=== PATIENT | female | born 1960 | race Caucasian/White ===

== ENCOUNTER 2016-07-17 14:07 | Observation (INO) | payer SELFPAY ==
--- NOTE | ~2016-07-17 | DS ---
Discharge Summary [facility] [address] [place]. [address] NAME: TERESA GODOY : 62 STATUS : DIS Caleb PAT#: [id number] AGE: 56 ADM/REG DATE : 07/17/16 MR#: [id number] REPORT SERV DATE: 07/20/16 DICTATED BY: JR. GAMBOA WILLIAM JOHN DATE: 07/19/16 REPORT STATUS : Draft TRANSCRIBED BY: NERY DATE: 07/19/16 ADMISSION DATE: 07/17/2016 DISCHARGE DATE: 07/19/2016 DISCHARGE DIAGNOSES: Include: 1. Bilateral multilobar pneumonia. 2. Chronic obstructive pulmonary disease exacerbation with continued tobacco use. 3. Chronic iron-deficiency anemia. 4. Bilateral lung nodules. 5. Hypokalemia. 6. Drug use with urine drug screen positive for amphetamine and marijuana. 7. Depressed thyroid-stimulating hormone with normal free T4. OPERATIONS/PROCEDURES AND TREATMENTS: Include: 1. Chest x-ray done 07/17/2016, which showed bibasilar asymmetric infiltrates, right worse than the left. 2. CT of the chest without contrast done 07/18/2016, which showed patchy ground-glass infiltrates throughout the lungs bilaterally involving the upper and lower lobes as well as the right middle lobe, likely infectious or inflammatory. There were peripheral subpleural calcified nodules in the lower lobes of both lungs, measuring up to 4 x 6 cm in the right lower lobe. Suggest CT follow up. There was prominent right peritracheal and subcarinal lymph nodes, likely reactive. Lung-RADS category 2 suggesting followup low-dose CT in 12 months. 3. Blood cultures x2, which were sterile to date. DISCHARGE MEDICATIONS: Include: 1. Prozac 40 mg orally daily. 2. Neurontin 800 mg three times a day. 3. Prednisone 40 mg orally daily for three days, then 20 for three days, then 10 for three days, then none. 4. Levaquin 750 mg orally daily for three days. 5. Dulera two puffs inhaled twice a day. 6. Combivent two puffs every six hours. HOSPITAL COURSE: The patient was a 56-year-old white female, presented to the emergency room at [facility] with complaint of shortness of breath. Apparently, she has had a six- month course of shortness of breath with dramatic worsening in the last week with shortness of breath even with minimal walking. She had a feeling of fluttering in her chest and cough, which is nonproductive. She denied fevers. She has smoked since she is 13 years old and has been cutting down and is currently at [id number] per day. On initial exam, she was afebrile with normal heart rate and respiratory rate, saturating 94% on room air. She had wheezing bilaterally with normal respiratory effort. Chest x-ray and CT scan are detailed above. The patient was admitted to the hospital with diagnosis of bilateral pneumonia and COPD exacerbation. She was placed on empiric Levaquin. Sputum culture was not obtained as the Discharge Summary [address] [place]. [address] NAME: TERESA GODOY : 62 STATUS : DIS Caleb PAT#: [id number] AGE: 56 ADM/REG DATE : 07/17/16 MR#: [id number] REPORT SERV DATE: 07/20/16 DICTATED BY: JR. GAMBOA WILLIAM JOHN DATE: 07/19/16 REPORT STATUS : Draft TRANSCRIBED BY: NERY DATE: 07/19/16 patient could not expectorate. She will complete a five-day course of Levaquin. She was initially on IV steroids, which were transitioned to oral. She has been started on bronchodilators and anticholinergic inhaled medication as well as inhaled steroid, which will be continued as an outpatient. Regarding the patient's chronic iron-deficiency anemia, she has microcytic anemia. Iron indices were indicative of iron deficiency. We would recommend outpatient colonoscopy. Regarding the bilateral lung nodules, we would recommend a low-dose CT scan in 12 months. The remainder of the patient's health problems were stable and were not addressed. DISCHARGE DIET: Regular. ACTIVITY: As tolerated. For discharge exam and laboratory, please see daily progress note. FOLLOWUP ISSUES: 1. Recommend followup CT in 12 months, low dose. 2. Consider outpatient colonoscopy for iron-deficiency anemia. 3. Follow up with [facility] in one to two weeks. This discharge took 34 minutes for patient encounter, coordination of care, and documentation. JUANA/NERY Roverto Gamboa Jr, MD / [id number] CC: Roverto Gamboa Jr, MD
--- NOTE | ~2016-07-17 | HP ---
History And Physical [facility] [address] [place]. [address] NAME: TERESA GODOY : 62 STATUS : ADM IN [facility]#: [id number] AGE: 56 ADM/REG DATE : 07/17/16 MR#: [id number] REPORT SERV DATE: 07/17/16 DICTATED BY: FILEMNO BUNN DATE: 07/17/16 REPORT STATUS : Draft TRANSCRIBED BY: MODPepe DATE: 07/17/16 DATE OF ADMISSION: 07/17/2016 HISTORY OF PRESENT ILLNESS: The patient is a 56-year-old female, who presented to [facility] Room with a complaint of shortness of breath. She reported that her shortness of breath is going on approximately for six months and she said that she was short of breath on physical exertion, but for the last week, the shortness of breath progressed substantially and she is even short of breath on minimal walking. She was having a feeling of fluttering in her chest, and she also had a cough, which is nonproductive, as well as she was complaining of some sharp pain behind the sternum just in the middle but it does not radiate to the left arm and it is not increasing on inspiration. She said that she is a long-term smoker, she smokes since 13 years old, used to smoke two to three packs a day, now she cut down to half pack a day. She said that she was trying to lose her weight and walking a lot and she lost significant amount of weight but recently, she is short of breath and cannot walk more, as well as she said that sometimes she has swollen lower extremities. She denied any orthopnea. No paroxysmal nocturnal dyspnea. She said she did not have any fever. If I asked her if she had a cold-like symptoms, she told me she had probably cold-like symptoms recently. PAST MEDICAL HISTORY: Known for hypertension, history of COPD. She denied any history of strokes. No heart attacks. No diabetes. She said that she is not using oxygen but probably she is supposed to use oxygen. She denied any history of seizures. No hypothyroidism. Also, she said that she has past medical history of bipolar disorder and depression. SOCIAL HISTORY: She used to be homeless. [facility], but now she has housing. She lives with her boyfriend. She denies any excessive use of alcohol. She smoked before two to three packs a day, now half pack a day for the last six months. She denies any use of recreational drugs. FAMILY HISTORY: Mother has diabetes. Father had heart problems. HOME MEDICATIONS: Fluoxetine 40 mg a day, Neurontin 800 three times a day, hydrocodone 10/325 twice a day p.r.n. for pain. ALLERGIES: NO KNOWN DRUG ALLERGIES. REVIEW OF SYSTEMS: Fourteen point review of system done and negative except what is stated in the history of present illness. PHYSICAL EXAMINATION: GENERAL: Well-nourished, well-developed female, not in acute distress. Resting quietly. VITAL SIGNS: Blood pressure 150/72, temperature 97.9, heart rate 88, respiratory rate 20, and oxygen saturation was 94 on room air. HEENT: Head is atraumatic, normocephalic. Conjunctivae clear. Pupils are equal and History And Physical [address] [address] NAME: TERESA GODOY : 62 STATUS : ADM IN [facility]#: [id number] AGE: 56 ADM/REG DATE : 07/17/16 MR#: [id number] REPORT SERV DATE: 07/17/16 DICTATED BY: FILEMON BUNN DATE: 07/17/16 REPORT STATUS : Draft TRANSCRIBED BY: NERY DATE: 07/17/16 reactive to light and accommodation. Extraocular muscles are intact. NECK: Supple. Trachea is midline. No supraclavicular or cervical lymphadenopathy. LUNGS: Positive wheezing anteriorly and posteriorly. Normal respiratory effort. CARDIOVASCULAR SYSTEM: Regular rate and rhythm. Point of maximal impulse not displaced. ABDOMEN: Soft, nontender, nondistended. Positive normoactive bowel sounds. EXTREMITIES: No clubbing, no cyanosis. Trace edema. NEUROLOGIC: Awake, alert, and oriented in time, place, and person. Muscle strength is 5/5 bilaterally on upper and lower extremities. PSYCHIATRIC: Normal mood and affect. LABORATORY RESULTS: Sodium 147, potassium 3.3, chloride 116, carbon dioxide 25, BUN 6, creatinine 0.61, blood sugar 107, ALT 42, AST 28. White count 9.3, hemoglobin 9.7, hematocrit 32.2, MCV 71.2, platelet count 292. There is hypochromasia, anisocytosis, microcytosis, and teardrop-shaped ovalocytes. Urinalysis was not done. Chest x-ray showed bibasilar asymmetric infiltrate, the right lung base worse than the left. EKG showed normal sinus rhythm with possible left atrial enlargement, right bundle branch block. Otherwise, negative EKG and ventricular rate of 91. ASSESSMENT AND PLAN: This is a 56-year-old female with a past medical history of chronic obstructive pulmonary disease who presented with dyspnea going on for the last six months with the cough being nonproductive, history of tobacco abuse, still smoking, presented with: 1. Bilateral pneumonia, although afebrile on presentation. 2. Chronic obstructive pulmonary disease exacerbation. 3. Tobacco abuse. 4. Anemia. Question if this is iron deficiency with a low MCV or maybe anemia of chronic disease. 5. For her pneumonia, basically these pneumonitis, bilateral pulmonary infiltrates. I will check her procalcitonin. They already victoria her blood cultures in the emergency room, and we will start her on IV Levaquin. Her oxygenation now in the emergency room looks good. 6. For chronic obstructive pulmonary disease exacerbation, I will start her on steroids. 7. Tobacco abuse. She needs to stop smoking. 8. Shortness of breath of six months duration likely related to chronic obstructive pulmonary disease. I will put her on intravenous Solu-Medrol as well as DuoNeb breathing treatment, but I will also order echocardiogram on this patient. 9. Chest pain, atypical, sharp in the midsternal area. We will check her serial troponins. 10.Anemia with low MCV. Could have iron deficiency anemia. We will check her stool Hemoccult x3, and we will check her TSH, and we will check also serum iron, ferritin, total iron-binding capacity. I will order CT of the chest without contrast for further delineation of pneumonia. I will order echocardiogram and also further review of medical records revealed that before the patient had urine drug screen done probably outpatient in 10/2015 and at that time, she was amphetamine positive. I am going to do urine drug screen again on this patient, and my partner, Dr. Draper, will see this patient starting tomorrow morning. History And Physical [address] [place]. [address] NAME: TERESA GODOY : 62 STATUS : ADM IN PAT#: [id number] AGE: 56 ADM/REG DATE : 07/17/16 MR#: [id number] REPORT SERV DATE: 07/17/16 DICTATED BY: FILEMON BUNN DATE: 07/17/16 REPORT STATUS : Draft TRANSCRIBED BY: NERY DATE: 07/17/16 MG/NERY Filemon Bunn M.D. / [id number]
[~2016-07-17 14:07] MED LIST: ACET500CAP PO; ALEVE220 MG PO; CELEXA40 MG PO; GOODY'S EX-STR1 EAC1 PO; PRIN10 PO; PROAIR HFA INH; ZANTAC150 MG PO
[2016-07-17 14:36] LABS: BASOPHILS 0.2 %; BASOPHILS ABSOLUTE 0.02 10/3/uL (0.0-0.16); EOSINOPHILS 2.6 %; EOSINOPHILS ABSOLUTE 0.24 10/3/uL (0.0-0.53); ER CBC TAT 0 Hrs 05 Mins; HEMATOCRIT 32.2 % (36.0-48.0); HEMOGLOBIN 9.7 g/dL (12.0-16.0); IMMATURE GRANULOCYTES 0.2 %; IMMATURE GRANULOCYTES ABSOLUTE 0.02 10/3/uL (0.0-0.11); LYMPHOCYTES 13.5 %; LYMPHOCYTES ABSOLUTE 1.25 10/3/uL (0.67-4.30); MEAN CORPUS HGB CONC 30.1 g/dL (32.0-36.0); MEAN CORPUSCULAR HEMOGLOB 21.5 pg (26.0-34.0); MEAN CORPUSCULAR VOLUME 71.2 fL (80-100); MEAN PLATELET VOLUME 9.1 fL (9.2-13.0); MONOCYTES 7.1 %; MONOCYTES ABSOLUTE 0.66 10/3/uL (0.21-1.20); NEUTROPHILS 76.4 %; NEUTROPHILS ABSOLUTE 7.07 10/3/uL (2.02-8.40); PLATELET COUNT 292 10/3/uL (150-400); RBC DISTRIBUTION WIDTH 17.3 % (12.0-16.0); RED CELL COUNT 4.52 10/6/uL (4.0-5.6); WHITE BLOOD CELLS 9.3 10/3/uL (4.5-10.5)
[2016-07-17 14:37] LABS: MANUAL DIFF NO %
[2016-07-17 14:52] LABS: CALCIUM, SERUM 8.6 MG/DL (8.5-10.4); CHLORIDE, SERUM 116 MMOL/L (96-112); CO2 (CARBON DIOXIDE) 25 MMOL/L (24-34); CREATININE 0.61 MG/DL (0.55-1.02); GFR AFRICAN AMERICAN 118 ML/MIN (>=60); GFR NON AFRICAN AMERICAN 102 ML/MIN (>=60); GLUCOSE, SERUM 107 MG/DL (60-99); POTASSIUM, SERUM 3.3 MMOL/L (3.5-5.3); SGOT(AST) 28 U/L (5-40); SGPT(ALT) 42 U/L (5-65); SODIUM, SERUM 147 MMOL/L (135-148); TOTAL BILIRUBIN 0.2 MG/DL (0-1.2); TOTAL PROTEIN 6.6 G/DL (6.0-8.5)
[2016-07-17 14:53] LABS: A/G RATIO 0.8 (0.7-1.9); ALBUMIN 2.9 G/DL (3.5-5.0); ALKALINE PHOSPHATASE 163 U/L (45-117); BUN (BLOOD UREA NITROGEN) 6 MG/DL (6-23); GLOBULIN 3.7 G/DL (2.5-4.1)
[2016-07-17 15:11] LABS: ANISOCYTOSIS 1+ (5-10/OIF) (0-5/OIF); HYPOCHROMIA 1+ (3-10/OIF) (0-2/OIF); PLATELET ESTIMATE ADQ (ADEQUATE)
[2016-07-17 15:12] LABS: OVALOCYTES 1+ (3-10/OIF) (0-2/OIF); SPHEROCYTES OCC (0-2/OIF); TEARDROP SHAPED RBCS OCC (0-2/OIF)
[2016-07-17] MEDS ORDERED: NORCO1 TAB PO (15:46)
[2016-07-17] MEDS ORDERED: NEUR800 PO (15:46)
[2016-07-17] MEDS ORDERED: PROZAC40 MG PO (15:46)
[2016-07-17 16:16] LABS: LACTATE 0.9 MMOL/L (0.3-2.4)
[2016-07-17 17:39] LABS: INFLUENZA A SCREEN NEGATIVE (NEGATIVE); INFLUENZA B SCREEN NEGATIVE (NEGATIVE)
[2016-07-17 17:43] LABS: AMPHETAMINES (NOT ORD) POS (NEG); BENZODIAZEPINES (NOT ORD) NEG (NEG); CANNABINOIDS (THC) POS (NEG); COCAINE (NOT ORDERED) NEG (NEG); PHENCYCLIDINE(PCP) NEG (NEG)
[2016-07-17 17:44] LABS: BARBITURATES (NOT ORDERED NEG (NEG); OPIATES NEG (NEG); TRICYCLICS NEG (NEG)
[2016-07-17 20:26] LABS: FERRITIN 31 NG/ML (8-252); IRON BINDING CAPACITY 349 MCG/DL (225-410); IRON, SERUM 9 MCG/DL (35-150); TROPONIN I <0.02 NG/ML (<0.05); ULTRASENSITIVE TSH 0.183 MCIU/ML (0.358-3.740)
[2016-07-17 20:31] LABS: B NATRIURETIC PEPTIDE (BNP) 111.5 PG/ML (< 100.0)
[2016-07-17 22:10] LABS: GLYCOHEMOGLOBIN (HbA1c) 5.4 % (4.7-6.1)
[2016-07-18 05:38] LABS: BASOPHILS 0.2 %; BASOPHILS ABSOLUTE 0.01 10/3/uL (0.0-0.16); EOSINOPHILS 0 %; HEMATOCRIT 29.6 % (36.0-48.0); HEMOGLOBIN 9.3 g/dL (12.0-16.0); IMMATURE GRANULOCYTES 0.2 %; IMMATURE GRANULOCYTES ABSOLUTE 0.01 10/3/uL (0.0-0.11); LYMPHOCYTES 10.6 %; LYMPHOCYTES ABSOLUTE 0.64 10/3/uL (0.67-4.30); MEAN CORPUS HGB CONC 31.4 g/dL (32.0-36.0); MEAN CORPUSCULAR HEMOGLOB 22.2 pg (26.0-34.0); MEAN CORPUSCULAR VOLUME 70.6 fL (80-100); MEAN PLATELET VOLUME 9.4 fL (9.2-13.0); MONOCYTES 4.5 %; MONOCYTES ABSOLUTE 0.27 10/3/uL (0.21-1.20); NEUTROPHILS 84.5 %; NEUTROPHILS ABSOLUTE 5.08 10/3/uL (2.02-8.40); PLATELET COUNT 317 10/3/uL (150-400); RBC DISTRIBUTION WIDTH 17.4 % (12.0-16.0); RED CELL COUNT 4.19 10/6/uL (4.0-5.6)
[2016-07-18 05:40] LABS: MANUAL DIFF NO %
[2016-07-18 05:57] LABS: BUN (BLOOD UREA NITROGEN) 7 MG/DL (6-23); CALCIUM, SERUM 8.5 MG/DL (8.5-10.4); CHLORIDE, SERUM 116 MMOL/L (96-112); GFR AFRICAN AMERICAN 113 ML/MIN (>=60); GFR NON AFRICAN AMERICAN 98 ML/MIN (>=60); POTASSIUM, SERUM 3.8 MMOL/L (3.5-5.3); SODIUM, SERUM 144 MMOL/L (135-148); TROPONIN I <0.02 NG/ML (<0.05)
[2016-07-18 05:59] LABS: CO2 (CARBON DIOXIDE) 20 MMOL/L (24-34); GLUCOSE, SERUM 209 MG/DL (60-99)
[2016-07-19 07:19] LABS: BUN (BLOOD UREA NITROGEN) 10 MG/DL (6-23); CALCIUM, SERUM 8.4 MG/DL (8.5-10.4); CHLORIDE, SERUM 112 MMOL/L (96-112); CO2 (CARBON DIOXIDE) 22 MMOL/L (24-34); CREATININE 0.72 MG/DL (0.55-1.02); FREE T4 0.92 NG/DL (0.76-1.46); GFR AFRICAN AMERICAN 109 ML/MIN (>=60); GFR NON AFRICAN AMERICAN 94 ML/MIN (>=60); GLUCOSE, SERUM 105 MG/DL (60-99); POTASSIUM, SERUM 3.4 MMOL/L (3.5-5.3); SODIUM, SERUM 143 MMOL/L (135-148)
[2016-07-19] MEDS ORDERED: P20 PO ×2 (16:25→16:26)
[2016-07-19] MEDS ORDERED: P10 PO (16:27)
[2016-07-19] MEDS ORDERED: LEVAQUIN750 MG PO (16:28)
[2016-07-19] MEDS ORDERED: DULERA 200 MCG/13 GM INH (16:29)
[2016-07-19] MEDS ORDERED: COMBIVENT RESPIM4 GM INH (16:30)
[2017-02-13] MEDS ORDERED: ZYRTEC ALLGY10 MG PO (21:51)
[2017-02-13] MEDS ORDERED: ZANTAC300 MG PO (21:51)
[2017-02-13] MEDS ORDERED: PROZAC40 MG PO (21:51)
[2017-02-13] MEDS ORDERED: NEUR800 PO (21:51)
[2017-02-13] MEDS ORDERED: GOODY'S EX-STR1 EAC1 PO (21:52)
== END 2016-07-19 17:24 | disposition home or self-care (01) ==
LOC: ER 14:07 → 5SO 16:23 → CDU1 16:29 → CDU2 18:04
PROVIDERS: Hospitalist; Internal Medicine; Physician Assistant
DX: J18.9 Pneumonia, unspecified organism (principal); J44.1 Chronic obstructive pulmonary disease with (acute) exacerbation; D50.9 Iron deficiency anemia, unspecified; E87.6 Hypokalemia; I10 Essential (primary) hypertension; J45.909 Unspecified asthma, uncomplicated; G43.909 Migraine, unspecified, not intractable, without status migrainosus; K21.9 Gastro-esophageal reflux disease without esophagitis; F32.9 Major depressive disorder, single episode, unspecified; Z79.2 Long term (current) use of antibiotics; Z79.899 Other long term (current) drug therapy; Z82.49 Family history of ischemic heart disease and other diseases of the circulatory system; Z79.891 Long term (current) use of opiate analgesic
CPT/HCPCS: 71010; 71250; 80048; 80053; 80305; 82728; 83036; 83540; 83550; 83605; 83735; 83880; 84132; 84145; 84439; 84443; 84484; 85025; 87040; 87804; 93005; 93306; 94640; 96372; 96374; 96375; 99285; A9270-GY; G0378; J1200; J1956; J2550; J2920